=== PATIENT | female | born 1970 | race African-American/Black ===

== ENCOUNTER → 2016-12-28 | Outpatient (CLI) | payer MEDICARE, MEDICAID ==
[~2016-12-28] MED LIST: GABA-529 PO; IOHEXOL-350 100 ML BOTTLE ONE; LISI-186 PO; METF-516 PO; OMEP20CA10 PO; SODIUM CHLORIDE 0.9% 10ML VIAL ONE
== END | disposition home or self-care (01) ==
LOC: CT 09:51
PROVIDERS: ATTEND Podiatrist Foot & Ankle Surgery
DX: I70.213 Atherosclerosis of native arteries of extremities with intermittent claudication, bilateral legs (principal); N85.2 Hypertrophy of uterus; K76.0 Fatty (change of) liver, not elsewhere classified; Z90.49 Acquired absence of other specified parts of digestive tract
CPT/HCPCS: 75635; A4216; Q9967